=== PATIENT | female | born 1970 | race Caucasian/White ===

== ENCOUNTER 2018-06-25 11:02 | Day surgery (SDC) | payer BC ==
[~2018-06-25 11:02] MED LIST: LACTATED RINGER'S 1,000 ML IV
[2018-06-25 12:06] LABS: ADD MAN DIFF? NO
[2018-06-25 12:11] LABS: BASOPHILS % 0.5 % (0.0-2.0); EOSINOPHILS % 0.7 % (0.0-7.0); HEMATOCRIT 39.7 % (37.0-47.0); HEMOGLOBIN 13.6 g/dl (12.0-16.0); LYMPHOCYTES # 1.8 10^3/ul (0.8-2.9); LYMPHOCYTES % 31.5 % (15.0-51.0); MEAN CORPUSCULAR HEMOGLOBIN 32.2 pg (29.0-33.0); MEAN CORPUSCULAR HGB CONC 34.3 g/dl (32.0-37.0); MEAN CORPUSCULAR VOLUME 93.9 fl (82.0-101.0); MEAN PLATELET VOLUME 10.2 fl (7.4-10.4); MONOCYTE # 0.3 10^3/ul (0.3-0.9); MONOCYTES % 5.3 % (0.0-11.0); NEUTROPHIL # 3.5 10^3/ul (1.6-7.5); NEUTROPHILS % 61.6 % (39.0-77.0); PLATELET COUNT 245 10^3/UL (140-415); RED BLOOD COUNT 4.23 10^6/ul (4.20-5.40); RED CELL DISTRIBUTION WIDTH 12.6 % (11.5-14.5)
[2018-06-25 12:11] LABS: WHITE BLOOD COUNT 5.7 10^3/ul (4.8-10.8)
[2018-06-25 12:34] LABS: ALANINE AMINOTRANSFERASE 34 IU/L (13-69); ALBUMIN 4.5 g/dl (3.3-4.9); ALKALINE PHOSPHATASE 73 IU/L (42-121); ANION GAP 10 (5-13); ASPARTATE AMINO TRANSFERASE 29 IU/L (15-46); BLOOD UREA NITROGEN 10 mg/dl (7-20); CALCIUM 9.1 mg/dl (8.4-10.2); CARBON DIOXIDE 23 mmol/L (21-31); CHLORIDE 106 mmol/L (97-110); CREATININE 0.65 mg/dl (0.44-1.00); Estimated GFR > 60 mL/min (>60); GLUCOSE 94 mg/dl (70-220); SODIUM 139 mmol/L (135-144); TOTAL PROTEIN 7.3 g/dl (6.1-8.1)
[2018-06-25] MEDS ORDERED: MIDAZOLAM 1 MG/ML 2 ML INJ (12:40)
[2018-06-25] MEDS ORDERED: CEFAZOLIN 1 GM INJ (14:03)
[2018-06-25] MEDS ORDERED: LIDOCAINE 2% (SDV) 5 ML INJ (14:03)
[2018-06-25] MEDS ORDERED: ONDANSETRON 4 MG INJ (14:03)
[2018-06-25] MEDS ORDERED: PROPOFOL 20 ML (14:03)
[2018-06-25] MEDS ORDERED: MEPERIDINE 25 MG INJ (14:10)
[2018-06-25] MEDS ORDERED: HYDROmorphONE 1 MG/5 ML IV SYRINGE IV ×4 (14:11→14:38)
[2018-06-25] MEDS ORDERED: DIPHENHYDRAMINE 50 MG INJ IV (14:30)
[2018-06-25] MEDS ORDERED: FENTAnyl 50 MCG/ML VIAL IV (14:30)
[2018-06-25] MEDS ORDERED: MEPERIDINE 25 MG INJ IV (14:30)
[2018-06-25] MEDS ORDERED: METOCLOPRAMIDE 10 MG INJ IV (14:30)
[2018-06-25] MEDS ORDERED: ONDANSETRON 4 MG INJ IV (14:30)
== END 2018-06-25 15:30 | disposition home or self-care (01) ==
LOC: SDS 11:02
DX: N92.0 Excessive and frequent menstruation with regular cycle (principal)
CPT/HCPCS: 58353; 80053; 84703; 85025